=== PATIENT | male | born 1970 | race Asian ===

== ENCOUNTER 2023-03-27 10:13 | Inpatient (IN) | payer OTHER ==
[~2023-03-27] VITALS: Ht 177.8 cm; Wt 68.5 kg
[2023-03-27 11:51] LABS: BASOPHILS % (AUTO) 1.2 % (0.0-2.0); EOSINOPHILS % (AUTO) 2.8 % (1.0-6.0); HEMATOCRIT 36.9 % (41-53); HEMOGLOBIN 11.9 g/dL (13.5-17.5); LYMPHOCYTES # (AUTO) 2.1 K/uL (1.0-4.8); LYMPHOCYTES % (AUTO) 23.6 % (22.0-44.0); MEAN CORPUSCULAR HEMOGLOBIN 30.3 pg (26.0-34.0); MEAN CORPUSCULAR HGB CONC 32.2 G/dL (31.0-37.0); MEAN CORPUSCULAR VOLUME 94 fL (80-100); MONOCYTES # (AUTO) 0.7 K/uL (0.1-1.0); MONOCYTES % (AUTO) 7.7 % (2.0-9.0); NEUTROPHILS # (AUTO) 5.7 K/uL (1.8-7.7); NEUTROPHILS % (AUTO) 64.7 % (40.0-70.0); PLATELET COUNT (AUTO) 365 K/uL (150-450); RED BLOOD CELL COUNT(AUTO) 3.92 MIL/uL (4.50-5.90); RED CELL DISTRIBUTION WIDTH 12.3 % (11.5-14.5); WHITE BLOOD COUNT (AUTO) 8.8 K/uL (4.5-11.0)
[2023-03-27 11:59] LABS: CALCIUM, TOTAL 8.9 mg/dL (8.8-10.5); CREATININE 1.71 mg/dL (0.60-1.30)
[2023-03-27 12:05] LABS: ALBUMIN 2.7 g/dL (3.4-5.0); BILIRUBIN,TOTAL 0.1 mg/dL (0.1-1.0); TOTAL PROTEIN, SERUM 6.4 g/dL (6.4-8.2)
[2023-03-27 12:07] LABS: TROPONIN I-HIGH SENSITIVITY 8 ng/L (<76)
[2023-03-27 12:10] LABS: ERYTHROCYTE SEDIMENTATION RATE 27 MM/HR (0-15)
[2023-03-27] MEDS ORDERED: DEXTROSE 50%-WATER 25 GM/50 ML SYRINGE IVP PRN (14:15)
[2023-03-27] MEDS ORDERED: SODIUM CHLORIDE 0.9% 1,000 ML IV ONE ×2 (14:15)
[2023-03-27] MEDS ORDERED: ONDANSETRON HCL 4 MG/2 ML VIAL IVP PRN (14:15)
[2023-03-27] MEDS ORDERED: ACETAMINOPHEN 325 MG TABLET PO PRN (14:15)
[2023-03-27 14:37] LABS: APPEARANCE,URINE CLEAR (CLEAR); BILIRUBIN,URINE NEGATIVE (NEGATIVE); COLOR,URINE COLORLESS (YELLOW); GLUCOSE, URINE (UA) >=1000 mg/dL (NEGATIVE); KETONES,URINE NEGATIVE (NEGATIVE); LEUKOCYTE ESTERASE ,URINE NEGATIVE (NEGATIVE); NITRATE,URINE NEGATIVE (NEGATIVE); OCCULT BLOOD,URINE NEGATIVE (NEGATIVE); PH,URINE 6.5 (5.0-8.0); PROTEIN,URINE 300-600,SEE CONFIRM mg/dL (NEGATIVE); SPECIFIC GRAVITIY, URINE 1.013 (1.003-1.030); UROBILINOGEN,URINE <=1.0 mg/dL (<=1.0)
[2023-03-27 14:47] LABS: BACTERIA,URINE None Seen /HPF (None Seen); RBC,URINE None Seen /HPF (0-2); SULFOSALICYLIC ACID,URINE 3+ (Negative); WBC,URINE None Seen /HPF (0-5)
[2023-03-27 16:00] VITALS: BP 152/87; PULSE 66; RESP 18; TEMP 98.3
[2023-03-27] MEDS: HEPARIN SODIUM,PORCINE 5,000 UNITS/ML VIAL SQ SCH (16:15)
[2023-03-27] MEDS: ASPIRIN 81 MG CHEWABLE TABLET PO SCH (16:15)
[2023-03-27] MEDS ORDERED: AmLODIPine BESYLATE 5 MG TABLET PO SCH (17:15)
[2023-03-27] MEDS: INSULIN LISPRO 100 UNITS/ML SQ PRN ×2 (17:27→20:41)
[2023-03-27 20:13] VITALS: BP 151/86; PULSE 63; RESP 18; TEMP 97.8
[2023-03-27 20:16] LABS: GLUCOMETER DEV NAME(LOC) 5S.2C; GLUCOSE,POINT OF CARE 159 MG/DL (70-110)
[2023-03-27] MEDS: DOCUSATE SODIUM 100 MG CAPSULE PO SCH (21:00)
[2023-03-27 21:27] LABS: GLUCOMETER DEV NAME(LOC) 5N.1C; GLUCOSE,POINT OF CARE 157 MG/DL (70-110)
[2023-03-28] MEDS: HEPARIN SODIUM,PORCINE 5,000 UNITS/ML VIAL SQ SCH ×4 (00:01→23:48)
[2023-03-28 00:07] VITALS: BP 161/95; PULSE 60; RESP 20; TEMP 98
[2023-03-28 04:00] VITALS: BP 160/94; PULSE 64; RESP 18; TEMP 98
[2023-03-28] MEDS: AmLODIPine BESYLATE 10 MG TABLET PO SCH (05:55)
[2023-03-28] MEDS: INSULIN LISPRO 100 UNITS/ML SQ PRN ×4 (05:57→20:12)
[2023-03-28 06:56] LABS: POTASSIUM 4.6 mmol/L (3.5-5.1)
[2023-03-28 06:58] LABS: CALCIUM, TOTAL 8.9 mg/dL (8.8-10.5); CREATININE 1.34 mg/dL (0.60-1.30)
[2023-03-28] MEDS: ASPIRIN 81 MG CHEWABLE TABLET PO SCH (08:30)
[2023-03-28] MEDS: FAMOTIDINE 20 MG TABLET PO SCH (08:30)
[2023-03-28] MEDS: DOCUSATE SODIUM 100 MG CAPSULE PO SCH ×2 (08:35→20:06)
[2023-03-28 10:13] VITALS: BP 152/88; PULSE 65; RESP 20; TEMP 98.5
[2023-03-28] MEDS ORDERED: SODIUM CHLORIDE 0.9% 1,000 ML IV ONE (10:30)
[2023-03-28] MEDS: LOSARTAN POTASSIUM 25 MG TABLET PO SCH (10:50)
[2023-03-28 12:00] VITALS: BP 149/91; PULSE 65; RESP 20; TEMP 98.8
[2023-03-28 15:41] LABS: GLUCOMETER DEV NAME(LOC) 5N.1C; GLUCOSE,POINT OF CARE 176 MG/DL (70-110)
[2023-03-28 15:41] LABS: GLUCOMETER DEV NAME(LOC) 5S.2C; GLUCOSE,POINT OF CARE 269 MG/DL (70-110)
[2023-03-28 16:00] VITALS: BP 133/80; PULSE 64; RESP 20; TEMP 98.6
[2023-03-28 20:00] VITALS: BP 143/81; PULSE 65; RESP 18; TEMP 98
[2023-03-28] MEDS: INSULIN GLARGINE,HUM.REC.ANLOG 100 UNITS/ML SQ SCH (21:07)
[2023-03-29] VITALS: BP 147/84; PULSE 67; RESP 18; TEMP 98.1
[2023-03-29 04:00] VITALS: BP 159/83; PULSE 67; RESP 18; TEMP 98.1
[2023-03-29] MEDS: INSULIN LISPRO 100 UNITS/ML SQ PRN ×4 (06:06→21:07)
[2023-03-29 06:07] LABS: HEPATITIS C AB (EIA) Non Reactive (Non Reactive)
[2023-03-29 06:26] LABS: GLUCOMETER DEV NAME(LOC) 5S.1B; GLUCOSE,POINT OF CARE 217 MG/DL (70-110)
[2023-03-29 07:03] LABS: CALCIUM, TOTAL 8.8 mg/dL (8.8-10.5); CREATININE 1.37 mg/dL (0.60-1.30); POTASSIUM 4.3 mmol/L (3.5-5.1)
[2023-03-29] MEDS: AmLODIPine BESYLATE 10 MG TABLET PO SCH (08:35)
[2023-03-29] MEDS: ASPIRIN 81 MG CHEWABLE TABLET PO SCH (08:35)
[2023-03-29] MEDS: FAMOTIDINE 20 MG TABLET PO SCH (08:35)
[2023-03-29] MEDS: LOSARTAN POTASSIUM 25 MG TABLET PO SCH (08:35)
[2023-03-29] MEDS: HEPARIN SODIUM,PORCINE 5,000 UNITS/ML VIAL SQ SCH ×3 (08:35→23:17)
[2023-03-29] MEDS: DOCUSATE SODIUM 100 MG CAPSULE PO SCH ×2 (08:36→21:00)
[2023-03-29 08:38] VITALS: BP 141/80; PULSE 71; RESP 17; TEMP 97.9
[2023-03-29 12:06] VITALS: BP 157/89; PULSE 67; RESP 16; TEMP 97.9
[2023-03-29] MEDS ORDERED: LOSARTAN POTASSIUM 25 MG TABLET PO ONE (16:15)
[2023-03-29 16:28] VITALS: BP 159/96; PULSE 74; RESP 20; TEMP 98.2
[2023-03-29 19:42] VITALS: BP 157/84; PULSE 73; RESP 20; TEMP 98.4
[2023-03-29] MEDS ORDERED: CloNIDine HCL 0.1 MG TABLET PO PRN (20:00)
[2023-03-29] MEDS: INSULIN GLARGINE,HUM.REC.ANLOG 100 UNITS/ML SQ SCH (21:06)
[2023-03-29 21:51] LABS: GLUCOMETER DEV NAME(LOC) 5N.1C; GLUCOSE,POINT OF CARE 233 MG/DL (70-110)
[2023-03-30 00:15] VITALS: BP 143/89; PULSE 77; RESP 18; TEMP 98.4
[2023-03-30 04:49] VITALS: BP 147/85; PULSE 73; RESP 18; TEMP 97.9
[2023-03-30 06:07] LABS: GLUCOMETER DEV NAME(LOC) 5N.2C; GLUCOSE,POINT OF CARE 203 MG/DL (70-110)
[2023-03-30] MEDS: INSULIN LISPRO 100 UNITS/ML SQ PRN (06:17)
[2023-03-30] MEDS: DOCUSATE SODIUM 100 MG CAPSULE PO SCH (09:00)
[2023-03-30] MEDS: AmLODIPine BESYLATE 10 MG TABLET PO SCH (09:00)
[2023-03-30] MEDS: FAMOTIDINE 20 MG TABLET PO SCH (09:00)
[2023-03-30] MEDS ORDERED: LOSARTAN POTASSIUM 50 MG TABLET PO SCH (09:00)
[2023-03-30] MEDS: HEPARIN SODIUM,PORCINE 5,000 UNITS/ML VIAL SQ SCH (09:00)
[2023-03-30] MEDS: ASPIRIN 81 MG CHEWABLE TABLET PO SCH (09:01)
[2023-03-30 10:08] VITALS: BP 139/82; PULSE 81; RESP 17; TEMP 97.9
[2023-03-30] MEDS ORDERED: ASPI-1450 PO (10:54)
[2023-03-30] MEDS ORDERED: FAMO20 PO (10:55)
[2023-03-30] MEDS ORDERED: DOCU-385 PO (10:55)
[2023-03-30] MEDS ORDERED: AMLO-258 PO (10:55)
[2023-03-30] MEDS ORDERED: INSLAN SQ (10:56)
[2023-03-30] MEDS ORDERED: LOSA-382 PO (10:56)
[2023-03-30] MEDS ORDERED: ACET-2247 PO (10:57)
[2023-03-30] MEDS ORDERED: INSU100V SQ (11:03)
[2023-03-30 11:31] LABS: GLUCOMETER DEV NAME(LOC) 5S.1B; GLUCOSE,POINT OF CARE 222 MG/DL (70-110)
[2023-03-30 11:36] LABS: GLUCOMETER DEV NAME(LOC) 5S.2C; GLUCOSE,POINT OF CARE 211 MG/DL (70-110)
[2023-03-30 11:36] LABS: GLUCOMETER DEV NAME(LOC) 5S.2C; GLUCOSE,POINT OF CARE 338 MG/DL (70-110)
[2023-03-30 11:36] LABS: GLUCOMETER DEV NAME(LOC) 5S.2C; GLUCOSE,POINT OF CARE 204 MG/DL (70-110)
== END 2023-03-30 16:40 | DRG 638 ==
LOC: EMS 10:15 → 5N 14:13 → 5S 15:55
PROVIDERS: ADMIT Internal Medicine; ATTEND Internal Medicine
DX: E11.65 Type 2 diabetes mellitus with hyperglycemia (principal); N17.9 Acute kidney failure, unspecified; I10 Essential (primary) hypertension; E78.00 Pure hypercholesterolemia, unspecified; Z87.891 Personal history of nicotine dependence; Z83.3 Family history of diabetes mellitus; Z79.899 Other long term (current) drug therapy
CPT/HCPCS: 71045; 80048; 80053; 81001; 81002; 82962; 84484; 85025; 85651; 86803; 87340; 93005; 99285; J1644; J1815; J7030; 36415-L1; 36415-TC